=== PATIENT | female | born 1975 | race African-American/Black ===

== ENCOUNTER 2016-11-07 07:54 | Emergency (ER) | payer MEDICAID ==
--- NOTE | 2016-11-07 07:59 | Emergency Department Record ---
History of Present Illness - General Chief Complaint: Chest Pain Stated Complaint: CHEST PAINS Time Seen by Provider: 11/07/16 07:58 Source: Patient, Family Mode of Arrival: Ambulatory Limitations: No limitations - History of Present Illness Initial Comments: 40 yo presents with chest pain that comes and goes. It is on the left side chest pain that started yesterday. The pain comes and goes. It is left sternal. The pain radiates to the left arm. She feels it is associated shortness of breath. She reports one week of left sided tingling mostly in the left arm. She reports she is a diabetic, hypertensive, smoker. She denies prior heart attack. She was in the hospital in [place] 3 years ago for 2 months renal failure. Her PCP is in [place]. She reports since she had weight loss she has been off her diabetic medication. She additionally has body aches all over. Her father in his 50's from a heart attack. Cardiac risk factors include DM, HTN, Smoker and family history. MD Complaint: Chest pain -: Days(s) (1) Onset: Other Pain Location: Left chest Pain Radiation: LUE Severity: Severe Quality: Sharp Consistency: Intermittent Improves With: Nothing Worsens With: Exertion, Inspiration Anginal Symptoms: Other Other Symptoms: Other (one week on tingling on her left side.) - Related Data Home Medications Medication Instructions Recorded Confirmed Last Taken Cyclobenzaprine HCl 10 mg PO Q6H 11/07/16 11/07/16 Unknown Ibuprofen [Ibuprofen] 800 mg PO Q6H PRN 11/07/16 11/07/16 Unknown Trazodone HCl 50 mg PO QHS 11/07/16 11/07/16 Unknown Allergies Allergy/AdvReac Type Severity Reaction Status Date / Time amoxicillin [From Augmentin] Allergy DIFFICULTY Verified 11/07/16 09:43 BREATHING clavulanic acid Allergy DIFFICULTY Verified 11/07/16 09:43 [From Augmentin] BREATHING Review of Systems Constitutional: Denies: Chills, Fever, Malaise, Weakness Eyes: Denies: Eye discharge, Eye pain, Photophobia, Vision change ENT: Denies: Congestion, Epistaxis, Throat pain Respiratory: Reports: Dyspnea. Denies: Cough, Hemoptysis, Stridor, Wheezes Cardiovascular: Reports: Chest pain. Denies: Arrhythmia, Dyspnea on exertion, Edema, Palpitations, Syncope Endocrine: Denies: Fatigue Gastrointestinal: Reports: Vomiting. Denies: Abdominal pain, Diarrhea, Nausea Genitourinary: Denies: Abnormal menses, Discharge, Dysuria, Urgency Musculoskeletal: Reports: Myalgia (body aches). Denies: Arthralgia, Joint swelling, Neck pain Skin: Denies: Bruising, Change in color, Rash Neurological: Reports: Numbness, Tingling (LUE). Denies: Abnormal gait, Confusion, Headache, Tremors, Vertigo, Weakness Psychiatric: Reports: Anxiety Hematological/Lymphatic: Denies: Anemia, Blood Clots, Easy bleeding, Easy bruising, Swollen glands Physical Exam - General General Appearance: Alert, Oriented x3, Cooperative, No acute distress Limitations: No limitations - Head Head exam: Atraumatic, Normocephalic, Normal inspection - Eye Eye exam: Normal appearance, PERRL. negative: Conjunctival injection, Scleral icterus - ENT ENT exam: Normal exam, Mucous membranes moist Ear exam: Normal external inspection Nasal Exam: Normal inspection Mouth exam: Normal external inspection - Neck Neck exam: Normal inspection, Full ROM. negative: Lymphadenopathy, Tenderness - Respiratory Respiratory exam: Normal lung sounds bilaterally, Chest wall tenderness ( inconsistent, she states the pain is internal). negative: Accessory muscle use , Decreased breath sounds, Respiratory distress, Rhonchi, Stridor, Wheezes - Cardiovascular Cardiovascular Exam: Regular rate, Normal rhythm, Normal heart sounds Peripheral Pulses: 2+: Radial (R), Radial (L) - GI/Abdominal GI/Abdominal exam: Soft. negative: Guarding, Rebound, Rigid, Tenderness - Rectal Rectal exam: Deferred - exam: Deferred - Extremities Extremities exam: Normal inspection, Full ROM, Normal capillary refill. negative: Pedal edema, Tenderness - Back Back exam: Reports: Normal inspection, Full ROM. Denies: CVA tenderness (R), CVA tenderness (L), Muscle spasm, Paraspinal tenderness, Rash noted, Tenderness , Vertebral tenderness - Neurological Neurological exam: Alert, CN II-XII intact, Normal gait, Oriented X3. negative : Altered, Motor sensory deficit - Psychiatric Psychiatric exam: Normal affect, Normal mood. negative: Agitated - Skin Skin exam: Dry, Intact, Normal color, Warm. negative: Cyanosis, Diaphoretic, Erythema, Mottled Course - Reevaluation(s) Reevaluation #1: EKG 07:56 NSR rate 91, intervals normal, axis normal, ST poor R wave progression until V5. No ST depression. No old EKG 11/07/16 08:22 EMR reviewed. NO prior ED visits. The patient denies ever having a stress test in the past. 11/07/16 08:31 Reevaluation #2: The labs were reviewed No acute changes of the CBC, The glucose was elevated at 144 otherwise no acute changes to the CMB The D-dimer was negative at 0.19 The Troponin was negative at .30 The BNP was negative at 5 11/07/16 09:16 HCG is negative HCT and CXR prelim reviewed with final read pending. No acute process on the prelim read. 11/07/16 09:29 Final read [address] the CT is minimal sinus disease otherwise normal. 11/07/16 09:37 Aspirin provided given the HCT is normal. 11/07/16 09:38 I explained to the patient that she does have risk factor including her history of DM, HTN, smoking, and of her father in his 50's from [place] Additionally she has non specific changes on her EKG with poor R wave. Given the risk factors and non specific EKG changes I recommend admission with further work up She was informed [facility] does not have cardiology on the weekends or stress testing capability She prefers [facility] if transferred I SW Dr Rivera of [facility]. She accepts the patient for transfer for serial enzymes, observation and possible stress tests/further work up. The patient was informed and agrees with transfer at this time 11/07/16 09:56 11/07/16 10:13 11/07/16 10:42 The patient now complains of epigastric pain after the morphine. This has not been a symptom prior to Morphine. She has ad her gall bladder removed in the past 11/07/16 10:48 11/07/16 11:26 The Epigastric pain that started after the morphine is returning. It is not the same as chest pain that brought her in to the ER Repeat EKG ordered Nitro will be tried and GI cocktail will be tried. 11/07/16 11:36 EKG #2 11:28 NSR, rate 72 intervals normal, axis normal, again non specific anterior EKG changes One Nitro resolved the epigastric pain The patient is pain free and transport is in the ED She is stable for transfer Medical Decision Making - Lab Data Result diagrams: 11/07/16 08:15 11/07/16 08:15 Disposition Disposition: Transfer Clinical Impression: Chest pain Qualifiers: Chest pain type: unspecified Qualified Code(s): R07.9 - Chest pain, unspecified Disposition: Acute Care Hospital Transfer Transfer To: [facility] Reason For Transfer: Chest pain, Accepting Physician: Nicole Time Discussed w/Accepting Physician: 10:18 Condition: (2) Stable Instructions: Chest Pain (ED) Forms: Patient Portal Access Time of Disposition: 10:18 Quality - Quality Measures Quality Measures: N/A - Blood Pressure Screening Does Patient Have Any of the Following: No Blood Pressure Classification: Normal BP Reading Systolic Measurement: 119 Diastolic Measurement: 79 Screening for High Blood Pressure: < Normal BP, F/U Not Required > [[id number]]
[2016-11-07] MEDS ORDERED: ACETAMINOPHEN 1,000 MG/100 ML BTL IVPB ONE (08:21)
[2016-11-07 08:31] LABS: BASO % 0.2 % (0-6); EOS % 1.5 % (0-6); HEMATOCRIT 43.7 % (35.0-47.0); HEMOGLOBIN 15.2 gm/dl (11.6-16.0); LYMPH % 18.8 % (16-45); MEAN CELL VOLUME 89.4 fl (81-97); MEAN CORPUSCULAR HEMOGLOBIN 31.1 pg (27-33); MEAN CORPUSCULAR HGB CONC 34.8 g/dl (32-36); MEAN PLATELET VOLUME 9.4 fl (7.4-10.4); MONO % 5.5 % (0-9); PLATELET COUNT 271 K/uL (130-400); RED BLOOD COUNT 4.89 M/uL (3.80-5.40); RED CELL DISTRIBUTION WIDTH 12.4 % (11.5-14.5); WHITE BLOOD COUNT W/O DIFF 8.7 K/uL (4.2-12.2)
[2016-11-07 08:47] LABS: INR 0.96; PROTHROMBIN TIME (PATIENT) 10.4 SECONDS (9.5-12.1)
[2016-11-07] MEDS ORDERED: DIAZEPAM 5 MG/1 ML TUBX IVP ONE (09:02)
[2016-11-07 09:06] LABS: URINE APPEARANCE CLEAR; URINE BILIRUBIN NEGATIVE (NEGATIVE); URINE BLOOD NEGATIVE (NEGATIVE); URINE COLOR YELLOW; URINE GLUCOSE (UA) NEGATIVE (NEGATIVE); URINE KETONE 15 mg/dL (NEGATIVE); URINE LEUKOCYTE ESTERASE SMALL (NEGATIVE); URINE NITRITE NEGATIVE (NEGATIVE); URINE PROTEIN NEGATIVE (NEGATIVE); URINE UROBILINOGEN 0.2 E.U./dL (0.20 - 1.00)
[2016-11-07 09:13] LABS: ALB/GLOB RATIO 1.4 (1.1-1.8); ALBUMIN 4.2 g/dL (4.0-5.0); ALKALINE PHOSPHATASE 78 U/L (35-104); ALT/SGPT 23 U/L (<33); AST/SGOT 21 U/L (10.0-35.0); BLOOD UREA NITROGEN 15 mg/dL (6-20); CREATININE 0.6 mg/dL (0.5-0.9); EST GLOMERULAR FILTRATION RATE > 60 mL/min; GLUCOSE,RANDOM 144 mg/dL (74-109); TOTAL PROTEIN 7.2 g/dL (6.6-8.7)
[2016-11-07 09:16] LABS: URINE RBC NONE SEEN (NONE SEEN); URINE WBC 16 - 20 (0-2/hpf)
[2016-11-07 09:17] LABS: HCG,QUALITATIVE URINE NEGATIVE (NEGATIVE); URINE BACTERIA FEW
[2016-11-07] MEDS ORDERED: ASPIRIN 81 MG CHEWABLE TABLET PO ONE (09:38)
[2016-11-07] MEDS ORDERED: MORPHINE SULFATE 5 MG/ML PFS IVP ONE (10:09)
[2016-11-07] MEDS ORDERED: ONDANSETRON HCL IV 4 MG/2 ML VIAL IVP ONE (10:09)
[2016-11-07 10:38] LABS: TROPONIN I < 0.30 ng/mL (0.00-0.300)
[2016-11-07] MEDS ORDERED: NITROGLYCERIN 0.4MG SL TABLET #25 BTL SL ONE (11:26)
[2016-11-07] MEDS ORDERED: MAGNESIUM HYDROXIDE/AL HYDROX 30 ML, LIDOCAINE VISC 2% 200 MG PO ONE ×2 (11:26)
--- NOTE | 2016-11-09 06:29 | CT SCAN REPORT ---
DATE: 11/07/2016. EXAM: CT OF THE BRAIN WITHOUT CONTRAST. HISTORY: Pain. TECHNIQUE: Sequential axial images were obtained from the foramen magna to the vertex without contrast administration. FINDINGS: Brain volume is normal. No large territorial infarct, hemorrhage, mass effect, or midline shift. No extra-axial fluid collection. There is ethmoid sinus disease. No depressed skull fracture. IMPRESSION: 1. NO ACUTE INTRACRANIAL ABNORMALITY IS APPRECIATED. 2. MINIMAL SINUS DISEASE. JOB NUMBER: [id number] [facility]
--- NOTE | 2016-11-09 06:31 | RADIOLOGY REPORT ---
DATE: 11/07/2016. EXAM: TWO VIEW, CHEST. HISTORY: Chest pain. TECHNIQUE: Frontal and lateral views of the chest were performed. FINDINGS: Heart size is normal. The lung hardy are clear. Osseous structures are normal. IMPRESSION: NEGATIVE CHEST EXAMINATION. JOB NUMBER: [id number] [facility]
== END 2016-11-07 11:44 | disposition short-term general hospital (02) ==
LOC: ER 07:54
DX: R07.89 Other chest pain (principal); R20.2 Paresthesia of skin; R06.02 Shortness of breath; R10.13 Epigastric pain; R51 Headache; E11.9 Type 2 diabetes mellitus without complications; R42 Dizziness and giddiness; R11.11 Vomiting without nausea; I10 Essential (primary) hypertension; F17.210 Nicotine dependence, cigarettes, uncomplicated
CPT/HCPCS: 99285 ×2; 96365; 96375; 85025; 85730; 85610; 84484; 80053; 81001; 84703; 81025; 85379; 83880; 71020; 70450; 93005; 93010; J2405; J2270; J3360